=== PATIENT | male | born 1950 | race Caucasian/White ===

== ENCOUNTER → 2024-04-30 10:26 | Outpatient (REF) | payer OTHER, SELFPAY | LOC: HWRCS 10:26 | PROVIDERS: ATTENDING PHYSICIAN Internal Medicine Cardiovascular Disease; FAMILY PHYSICIAN Family Medicine | DX: Q23.1 Congenital insufficiency of aortic valve (principal) | CPT/HCPCS: 93306 ==

== ENCOUNTER 2025-01-12 10:08 | Emergency (ER) | payer OTHER, SELFPAY ==
[2025-01-12 10:09] VITALS: BP 156/94
--- NOTE | 2025-01-12 10:50 | ED.SKININJ ---
HPI-Injury
General
Chief Complaint: Bite
Time Seen by Provider: 01/12/25 10:49
History of Present Illness-Injury
Initial Injury comments:
TIME OF INITIAL ENCOUNTER: 11 AM
HPI: The patient was bit by his dining dog as he was trying to give a medication. The patient has laceration at the base of the left thumb with ongoing bleeding. He is not on any anticoagulation or antiplatelets. His dog's rabies vaccinations are
up-to-date the patient is not up-to-date on tetanus status.
EXAM:
GENERAL: Well appearing in no distress
HEENT: Moist oral mucosa
NEUROLOGIC: Excellent strength all extremities, no obvious coordination deficits
PSYCHIATRIC: Appropriate mental status, normal insight and judgement
EXTREMITIES: Nontender, no edema, moves all extremities equally
SKIN: There is a 4 cm laceration at the base of the left thumb with good active range of motion but only slightly limited by the pain. Tendon function appears to be intact
NUMBER AND COMPLEXITY OF PROBLEMS ADDRESSED AT THE ENCOUNTER
� Chronic conditions affecting care: AVNRT, prostate cancer
� Acute Exacerbation and/or Progression of Chronic Illness: This is an acute problem
� Differential Diagnosis includes: Dog bite, laceration, no evidence for foreign body
AMOUNT AND/OR COMPLEXITY OF DATA TO BE REVIEWED AND ANALYZED
� I performed an independent evaluation of and my interpretation is:
EKG:
CT:
X-rays:
Laboratory Studies:
Other:
� Review of other/old records: I reviewed records, the patient had an echo April 2024
� Clinical information was obtained by an independent historian: None needed
� Prescriptions/Medications Considered but not given:
� Further testing considered but not performed:
RISK OF COMPLICATIONS AND/OR MORBIDITY OR MORTALITY OF PATIENT MANAGEMENT
� Social determinants of health affecting care: Lives at home
� Discussion with other providers:
� Escalation of care including admission/observation vs risk of discharge considered: The patient was copiously irrigated. I was initially going to only place 2 very loose stitches as he does have rather significant soft tissue
deformity however there was ongoing bleeding and 4 stitches were placed. This helped with hemostasis. Augmentin started and tetanus updated.
ANY OTHER UPDATES:
Past History
Past History
ED Past Medical History: Psychiatric (Anxiety disorder)
Social History
Tobacco: Non-smoker
Alcohol: None
Personal:
Phy Exam
Physical Exam
Physical Exam:
See HPI
Course
Orders/Labs/Results
Orders:
Orders
01/12/25 11:37
Amoxicillin 875 mg/Clav 125 mg [Augmentin 875 mg/125 mg] 1 tablet PO NOW STA
Tetanus/Diphth/Acelpertussis [Adacel] 0.5 ml IM .ONCE ONE
Vital Signs
Initial and Last Documented VS:
Initial Vital Signs
Temp Pulse Resp BP Pulse Ox
36.4 C 67 20 156/94 96
01/12/25 10:09 01/12/25 10:09 01/12/25 10:09 01/12/25 10:09 01/12/25 10:09
Last Documented Vital Signs
Temp Pulse Resp BP Pulse Ox
36.4 C 67 20 156/94 96
01/12/25 10:09 01/12/25 10:09 01/12/25 10:09 01/12/25 10:09 01/12/25 10:09
Procedures
Laceration Closure
Left Thumb:
Status of Wound: clean
Description of Wound Edges: sharp
Preparation: cleaned with saline
Revision/Debridement: routine- no revision
Wound exploration: explored to base- no FB
Type of Closure: single layer closure
Skin Closure Material: 4-0 nylon
Number of sutures: 4
*Critical Care Note
Total Time (30-74mins, 75-104mins- exclusive of procedures): Not Applicable
ED Attending Note
-
Portions of this chart may have been created with voice recognition software.� Occasional wrong word or��sound alike� substitutions may have occurred due to the inherent limitations of voice recognition software.
Discharge Plan
Departure
Patient Disposition: Home (Routine Discharge)
Date of Disposition: 01/12/25
Time of Disposition: 11:37
Patient with high blood pressure during this ER visit?: Yes
Discharge Problem:
Dog bite
Instructions: Animal Bites (DC), BLOOD PRESSURE
Prescriptions:
New
amoxicillin-pot clavulanate 875-125 mg tablet
1 tab PO BID Qty: 10 0RF
Referrals:
Niesha Turner MD [Family Provider] -
Activity Restrictions/Additional Instructions:
Have stitches removed by your primary care doctor in approximately 1 week. Return here if worse or other concerns.
Interventions
Interventions:
*Risk Screen - Suicide Last Done: 01/12/25 10:09
*General Assessment Last Done: 01/12/25 10:09
*Nursing Disposition Last Done: 01/12/25 11:46
ED-Skin Assessment Last Done: 01/12/25 10:55
Discharge Date and Time
Discharge Date/Time: 01/12/25 11:47
Print Language: DIVEHI
[2025-01-12] MEDS: AUGMENTIN 875 MG/125 MG 1 TABLET PO (11:40)
[2025-01-12] MEDS: ADACEL 0.5 ML IM (11:40)
== END 2025-01-12 11:47 | disposition home or self-care (01) ==
LOC: EMR 10:08
PROVIDERS: EMERGENCY PHYSICIAN Emergency Medicine; FAMILY PHYSICIAN Family Medicine
DX: S61.012A Laceration without foreign body of left thumb without damage to nail, initial encounter (principal); W54.0XXA Bitten by dog, initial encounter; Z23 Encounter for immunization; R03.0 Elevated blood-pressure reading, without diagnosis of hypertension
CPT/HCPCS: 99283; 12002; 90471; 90715

== ENCOUNTER → 2025-05-05 10:13 | Outpatient (REF) | payer OTHER, SELFPAY | LOC: HWRCS 10:13 | PROVIDERS: ATTENDING PHYSICIAN Internal Medicine Cardiovascular Disease; FAMILY PHYSICIAN Family Medicine | DX: I35.0 Nonrheumatic aortic (valve) stenosis (principal) | CPT/HCPCS: 93306 ==